=== PATIENT | male | born 1955 | race Caucasian/White ===

== ENCOUNTER 2016-07-15 18:56 | Emergency (ER) | payer OTHER ==
[2016-07-15] MEDS ORDERED: Azithromycin 250 MG TAB ONE (19:34)
== END 2016-07-15 19:40 | disposition home or self-care (01) ==
LOC: MADERS 18:56
DX: J20.9 Acute bronchitis, unspecified (principal); I10 Essential (primary) hypertension
CPT/HCPCS: 99283

== ENCOUNTER 2020-03-27 19:43 | Emergency (ER) | payer OTHER ==
[2020-03-27] MEDS ORDERED: Acetaminophen 500 MG TAB ONE (20:26)
[2020-03-27] MEDS ORDERED: Ondansetron ODT 4 MG TAB ONE (20:26)
--- NOTE | 2020-03-27 20:56 | RAD ---
CHEST TWO VIEWS: History: Cough Comparison: 09-12-13 FINDINGS: Heart size is within normal limits. The lungs are clear. IMPRESSION: No significant acute intrathoracic disease. POS: [facility]
[2020-03-28 15:46] LABS: SARS-CoV-2 MS2 Positive; SARS-CoV-2 N Gene Negative; SARS-CoV-2 S Gene Negative; SARS-CoV-2 by NAA Not Detected (NotDetected); SARS-CoV-2 orf1ab Negative
== END 2020-03-27 20:54 | disposition home or self-care (01) ==
LOC: MADERS 19:43
DX: R51.9 Headache, unspecified (principal); R50.9 Fever, unspecified; R11.2 Nausea with vomiting, unspecified; Z20.828 Contact with and (suspected) exposure to other viral communicable diseases; J30.2 Other seasonal allergic rhinitis
CPT/HCPCS: 71046; 87635; Q0162; U0003

== ENCOUNTER 2020-03-31 10:29 | Emergency (ER) | payer OTHER ==
[2020-03-31] MEDS ORDERED: Ondansetron PF 4 MG/2 ML Vial ONE (10:54)
[2020-03-31] MEDS ORDERED: Sodium Chloride 0.9% 1,000 ML ONE ×2 (10:54→12:18)
[2020-03-31] MEDS ORDERED: Ketorolac Tromethamine 30 MG/ML VIAL ONE (10:54)
[2020-03-31 11:03] LABS: #Basophils 0.1 thou/uL (0.0-0.2); #Lymphocytes 1.5 thou/uL (1.20-3.40); #Monocytes 0.8 thou/uL (0.11-0.59); #Neutrophils 7.4 thou/uL (1.40-6.50); %Basophils 0.8 % (0.0-1.0); %Eosinophils 0.1 % (0.0-10.0); %Lymphocytes 14.9 % (21.0-51.0); %Monocytes 7.7 % (0.0-10.0); %Neutrophils 76.4 % (42.0-75.0); Hemoglobin 15.7 g/dL (14.0-18.0); Mean Corpuscular HGB CONC 33.1 g/dL (32.0-36.0); Mean Corpuscular Hemoglobin 29.2 pg (27.0-31.0); Mean Corpuscular Volume 88.1 fL (78.0-98.0); Mean Platelet Volume 8.2 fL (7.4-10.4); Platelet Count 177 thou/uL (130-400); RBC Distribution Width 10.2 % (11.5-14.5); White Blood Cell (WBC) Count 9.7 thou/uL (4.8-10.8)
[2020-03-31 11:16] LABS: ALT (SGPT) 19 U/L (8-55); AST (SGOT) 28 U/L (5-34); Albumin 3.6 g/dL (3.4-4.8); Alkaline Phosphatase 73 U/L (40-110); Anion Gap 15 mmol/L (10-20); BUN (Urea Nitrogen) 9 mg/dL (8.4-25.7); Bilirubin, Total 1.2 mg/dL (0.2-1.2); Calc. Creatinine Clearance 0 mL/min (70-130); Calcium 8.3 mg/dL (7.8-10.44); Carbon Dioxide 22 mmol/L (23-31); Chloride 97 mmol/L (98-107); Estimated GFR-MDRD 78; Globulin 2.8 g/dL (2.4-3.5); Glucose 119 mg/dL (80-115); Potassium 3.4 mmol/L (3.5-5.1); Protein, Total 6.4 g/dL (5.8-8.1); Sodium 131 mmol/L (136-145)
--- NOTE | 2020-03-31 11:23 | RAD ---
PA AND LATERAL VIEWS CHEST: HISTORY: Dyspnea. COMPARISON: 03/27/2020. FINDINGS: The heart size is normal. The lungs are expanded without lobar consolidation, pneumothoraces, or ple ural effusions. IMPRESSION: No acute process. POS: [id number]
[2020-03-31 12:33] LABS: Bilirubin Negative (Negative); Blood, Urine Trace (Negative); Clarity Clear (Clear); Glucose, Urine (Dipstick) Negative (Negative); Ketone, Urine Negative (Negative); Leukocyte Negative (Negative); Nitrite Negative (Negative); Protein, Urine (Dipstick) Negative (Neg-Trace)
[2020-03-31 12:45] LABS: Bacteria/HPF Rare-Few HPF (None Seen); Mucous/LPF None Seen LPF (<2+); RBC/HPF 0-3 HPF (0-3); Squamous Epithelial 0-3 HPF (0-3); WBC/HPF 0-3 HPF (0-3)
[2020-03-31] MEDS ORDERED: Sodium Chloride 0.9% 100 ML ONE (14:17)
[2020-03-31] MEDS ORDERED: Diltiazem 125 MG/25 ML ONE (14:17)
[2020-03-31] MEDS ORDERED: Enoxaparin Sodium 80 MG/0.8 ML SYRINGE ONE (14:19)
[2020-04-01 20:01] LABS: SARS-CoV-2 MS2 Positive; SARS-CoV-2 N Gene Negative; SARS-CoV-2 S Gene Negative; SARS-CoV-2 by NAA Not Detected (NotDetected); SARS-CoV-2 orf1ab Negative
== END 2020-03-31 14:59 | disposition short-term general hospital (02) ==
LOC: MADERS 10:29
DX: I48.92 Unspecified atrial flutter (principal); Z20.828 Contact with and (suspected) exposure to other viral communicable diseases; J30.2 Other seasonal allergic rhinitis; Z79.899 Other long term (current) drug therapy
CPT/HCPCS: 71046; 80053; 81003; 81015; 83605; 83880; 84484; 85025; 87635; 93005; 94760; 96365; 96372; 96375; 96376; J1650; J1885; J2405; J3490; J7050; U0003

== ENCOUNTER 2021-09-25 15:35 | Emergency (ER) | payer OTHER | END 2021-09-25 16:25 | disposition home or self-care (01) | LOC: MADERS 15:35 | DX: S39.011A Strain of muscle, fascia and tendon of abdomen, initial encounter (principal); X50.9XXA Other and unspecified overexertion or strenuous movements or postures, initial encounter; Y93.52 Activity, horseback riding | CPT/HCPCS: 99283 ==

== ENCOUNTER 2023-04-25 14:12 | Outpatient (CLI) | payer BC | END 2023-04-25 14:13 | disposition home or self-care (01) | LOC: MADRAD 14:12 | PROVIDERS: ATTEND Registered Nurse | DX: M79.641 Pain in right hand (principal); M79.644 Pain in right finger(s); S62.630A Displaced fracture of distal phalanx of right index finger, initial encounter for closed fracture ==

== ENCOUNTER 2023-05-24 08:22 | Emergency (ER) | payer BC, MEDICARE ==
[2023-05-24] MEDS ORDERED: Ipratropium/Albuterol 3 ML NEB ONE (08:56)
[2023-05-24] MEDS ORDERED: Azithromycin 500 MG VIAL ONE (08:56)
[2023-05-24] MEDS ORDERED: Sodium Chloride 0.9% 250 ML 250 ML ONE (08:57)
[2023-05-24] MEDS ORDERED: Lactated Ringer's 1,000 ML ONE (08:57)
[2023-05-24] MEDS ORDERED: Aspirin Chewable 81 MG TAB ONE (08:57)
[2023-05-24 09:05] LABS: Hematocrit 51.5 % (42.0-52.0); Hemoglobin 16.4 g/dL (14.0-18.0); Mean Corpuscular HGB CONC 31.8 g/dL (32.0-36.0); Mean Corpuscular Hemoglobin 28.5 pg (27.0-31.0); Mean Corpuscular Volume 89.4 fl (78.0-98.0); Mean Platelet Volume 9.5 fL (7.4-10.4); Platelet Count 148 10x3/uL (130-400); RBC Distribution Width 12.5 % (11.5-14.5); Red Blood Cell (RBC) Count 5.76 mill/uL (4.70-6.10); White Blood Cell (WBC) Count 6.5 10x3/uL (4.8-10.8)
[2023-05-24 09:13] LABS: INR-International Normal Ratio 1.2; Prothrombin Time 15.2 sec (12.0-14.7)
[2023-05-24 09:14] LABS: PTT 36.3 sec (22.9-36.1)
[2023-05-24 09:19] LABS: ALT (SGPT) 16 U/L (8-55); AST (SGOT) 29 U/L (5-34); Albumin 4.4 g/dL (3.4-4.8); Alkaline Phosphatase 73 U/L (40-110); Anion Gap 15 mmol/L (10-20); BUN (Urea Nitrogen) 12 mg/dL (8.4-25.7); Bilirubin, Total 0.9 mg/dL (0.2-1.2); Calc. Creatinine Clearance 0 mL/min (70-130); Calcium 9.1 mg/dL (7.8-10.44); Carbon Dioxide 22 mmol/L (23-31); Chloride 105 mmol/L (98-107); Estimated GFR 78; Globulin 2.9 g/dL (2.4-3.5); Glucose 96 mg/dL (80-115); Potassium 4.3 mmol/L (3.5-5.1); Protein, Total 7.3 g/dL (5.8-8.1); Sodium 138 mmol/L (136-145)
[2023-05-24 09:21] LABS: Anisocytosis SLIGHT = 6-15 cells (100X) (0-5/hpf); Band 4 % (5-11); Lymphocytes 16 % (21-51); MDiff Complete? YES; Manual Diff?? YES; Monocytes 6 % (0-10); Neutrophil 74 % (42-75); Platelet Adequacy Comment Appears Adequate
[2023-05-24 09:23] LABS: Troponin I Less than 0.010 ng/mL (< 0.028)
[2023-05-24 09:28] LABS: Magnesium 1.9 mg/dL (1.6-2.6)
== END 2023-05-24 10:25 | disposition home or self-care (01) ==
LOC: MADERS 08:22
DX: J18.9 Pneumonia, unspecified organism (principal); I48.20 Chronic atrial fibrillation, unspecified
CPT/HCPCS: 71046; 80053; 83605; 83735; 84443; 84484; 85025; 85379; 85610; 85730; 87040; 93005; 94760; J0456; J7050; J7120; J7620